=== PATIENT | male | born 1965 | race Caucasian/White ===

== ENCOUNTER 2019-08-05 05:54 | Inpatient (IN) | payer OTHER, SELFPAY ==
[2019-07-20 12:50] VITALS: BMI 35.5
[2019-08-05] VITALS (13 sets, daily range): BP systolic 98–158; BP diastolic 64–92; PULSE 72–99; RESP 14–18; TEMP 36.3–37.1; O2SAT 93–98; BMI 35.5
--- NOTE | 2019-08-05 06:00 | DI.RAD.S_ITS ---
PROCEDURE: XR KNEE LT 1TO2V INDICATIONS: left TKA TECHNIQUE: 2 view(s) of the knee acquired. COMPARISON: [facility], , KNEE 1-2 VIEWS RIGHT, 12/27/2015, 16:31. FINDINGS: Bones: Patient is status post knee joint arthroplasty. Hardware components are in expected positions. Visualized bony structures are intact. Soft tissues: Overlying postoperative changes are noted. IMPRESSION: Expected appearance of left knee arthroplasty. Dictated by: Fabian Martines M.D. on 08/05/2019 at 9:59 Approved by: Fabian Martines M.D. on 08/05/2019 at 9:59
[2019-08-05] MEDS: LACTATED RINGERS 1,000 ML 42 ML IV ×2 (07:11→08:46)
[2019-08-05] MEDS: ACETAMINOPHEN 325 MG TABLET 975 MG PO ×3 (07:15→16:50)
[2019-08-05] MEDS: CELECOXIB 200 MG CAPSULE PO (07:15)
[2019-08-05] MEDS: PREGABALIN 75 MG CAPSULE PO (07:15)
--- NOTE | 2019-08-05 07:29 | PM.PREOP ---
Pre-operative Note Interval Note History & Physical reviewed/Exam performed by Physician: Yes Changes to H&P: No
--- NOTE | 2019-08-05 07:30 | P.OP_ITS ---
Operative Date/Time/Diagnoses Date of procedure: 08/05/19 Time of procedure: 09:46 Pre-op diagnosis: Left knee osteoarthritis Post-op diagnosis: same Procedure & Clinicians Procedure: Left total knee arthroplasty Same procedure as scheduled: Yes Indications: The patient presents today for total knee arthroplasty after failure of conservative treatment. The nature of the procedure including the risks and benefits, alternatives, postoperative course and expected outcome were discussed and all questions answered. Consent was obtained. Operative site confirmed and marked. Surgeon: Dakota Saucedo [employer] Consultant: Jer Szymanski Anesthesia Type: General, Spinal and Local Operative Notes Findings: The patient had severe osteoarthritis with varus alignment. The knee had very thick fatty synovial tissue inside. It did not appear to be particularly inflamed. Minimal fluid and no evidence of infection. A moderate amount of the synovium was resected in addition to doing the knee replacement. Closure Type: primary Specimen(s): none sent Prosthetic devices, grafts, tissues, transplants, or devices: Markell Persona TKA 9 CR femoral component, F stemmed tibial component, 11MC polyethylene tray and 32 mm all poly patella. Applied: implant(s) Estimated Blood Loss (mL): 10 Blood products transfused: none Tourniquet time (min): 55 Procedure in detail: The patient was taken to the operative suite and placed under general and spinal anesthesia. The patient was given prophylactic antibiotics prior to surgery. The patient was also given tranexamic acid, 1 g, just prior to surgery for postoperative hemostasis. The lateral knee was prepped and the joint injected with 20 mL of 1% Lidocaine with epinephrine. The knee was then prepped and draped in usual sterile fashion. The leg was exsanguinated with an Esmarch dressing and the tourniquet raised to 250 torr. A 15 cm anterior incision was made. Next a medial trivector arthrotomy was made. The extensor mechanism was marked to ensure accurate repair. Initial exposing dissection was carried out medially and laterally. The knee was then flexed and the intramedullary femoral guide luis placed. The distal femoral cut was made in 5? of valgus at the +0 position. The femoral size was measured and the appropriate cutting block was then placed and the anterior, posterior and chamfer cuts made. The intramedullary tibial alignment luis was then placed. The guide was set to remove approximately 10 mm from the less affected lateral side. The proximal tibial cut was then made with an oscillating saw. All meniscus and bony debris was then removed. Posterior femoral osteophytes removed with a curved osteotome. Flexion extension gaps were checked. No specific balancing was required other than routine exposure and removal of osteophytes. The soft tissues were then injected with a combination of 20 mL of half percent Marcaine with epinephrine and 20 mL of Exparel. The trial components were then placed. The knee was then extended and the patellar thickness was measured and a cut made removing approximately 9 mm of bone. The patella was then sized and drilled. Some excess lateral bone was excised and the patellofemoral ligament released. The knee went into full extension and flexion beyond 120?. There was excellent medial-lateral balance throughout motion. Patellar tracking was excellent. The trial components were removed and the knee was cleansed with Pulsavac irrigation and dried. The final components were cemented with high viscosity vacuum mixed bone cement with antibiotics. The joint was filled with a dilute Betadine solution. The knee was held in extension and the patellar clamped until the cement was adequately cured. The knee was then irrigated. The extensor mechanism was closed with 5 interrupted #1 Vicryl sutures and a running Quill suture at approximately 90 degrees of flexion. The joint was then injected with a combination of 1 g of tranexamic acid and 20 mL of quarter percent Marcaine with epinephrine. The subcutaneous tissue was closed with 2 0 Vicryl. The skin was closed with luz and surgical adhesive. An Aquacel dressing and Michael wrap were then applied. The patient tolerated the procedure well and was returned to recovery room in good condition. Complications: none Post-operative Condition: stable Disposition: PACU Plan for aftercare: [facility] protocol for total knee arthroplasty. May discharge to home later today.
[2019-08-05] MEDS: CEFAZOLIN 2 GM/100 ML FROZ.PIGGY IV ×2 (07:54→16:43)
[2019-08-05] MEDS: LIDOCAINE 1% W/EPI 20 ML INJ (08:00)
[2019-08-05] MEDS: TRANEXAMIC ACID 1,000 MG VIAL 1000 MG INJ (08:12)
--- NOTE | 2019-08-05 08:30 | SUR.OPER ---
Supine on padded OR bed. Pillow under head, arms secured on padded armboards <90 degree abduction. Safety belt across torso. Non-operative leg secured with tape over blanket over lower leg. Operative leg secured in DeMayo/Ancelmo positioner. Foam padded brace at thigh of operative leg.
[2019-08-05] MEDS: BUPIVACAINE 0.5% W/ EPI (PF) 20 ML, BUPIVACAINE LIPOSOME 266 MG, SODIUM CHLORIDE 0.9% 2... INJ (08:37)
[2019-08-05] MEDS: BUPIVACAINE 0.25% W/ EPI (PF) 20 ML, TRANEXAMIC ACID 1,000 MG, SODIUM CHLORIDE 0.9% 10 ML INJ (08:40)
[2019-08-05] MEDS: METOCLOPRAMIDE 10 MG/2 ML INJ IV (10:00)
[2019-08-05] MEDS: ONDANSETRON 4 MG/2 ML INJ IV (10:00)
[2019-08-05] MEDS: OXYCODONE IR 5 MG TABLET 10 MG PO (11:54)
[2019-08-05] MEDS: LACTATED RINGERS 1,000 ML 125 ML IV (11:54)
[2019-08-05] MEDS: IBUPROFEN 400 MG TABLET PO (14:06)
[2019-08-05] MEDS: NICOTINE 21 MG PATCH TOP (14:08)
[2019-08-05] MEDS: BUSPIRONE 5 MG TABLET PO (14:29)
[2019-08-05] MEDS: ASPIRIN EC 81 MG TABLET PO (14:29)
--- NOTE | 2019-08-05 15:05 | PT.IIE ---
This is to certify that I have reviewed this documentation and is involved with this pt's care. Current Diagnoses Unilateral primary osteoarthritis, right knee (08/05/19) Surgery Performed Operation Date: 08/05/19 07:45 Actual Procedures p Total Knee Arthroplasty(Left) - Dakota Saucedo MD Surgical History (Last Updated 07/28/19 @ 13:28 by Alexus Ram RN) H/O partial resection of colon (Acute ~2014) History of arthroplasty of right knee (Acute 12/27/15) Hx of right knee surgery (Acute) Medical History (Last Updated 07/20/19 @ 13:02 by Alexus Ram RN) Chronic dislocation of shoulder (Acute) Osteoarthritis (Acute) Physical Therapy Inpatient Evaluation/Re-Eval M1 PT/OT-IP Prior Functional Status Start: 08/05/19 11:13 Freq: NEEDED Status: Discharge Protocol: Document 08/05/19 15:05 JG (Rec: 08/05/19 17:41 [id number]) Medical Review Prior Functional Status Medical History Reviewed Yes Diet/Fluid Consistency Regular Communication No noted cognitive or communication deficits. Able to make needs known. Mobility and Gait Pt reports I with mobility and gait but limited tolerance d/ t pain in L knee. Activities of Daily Living and IADL's Pt reports I with mobilit and gait. Prior Functional Level (Other details) Pt was able to drive prior to surgery. Social History Household Members spouse,children Living Arrangements House Number of Floors (Floors) One Floor Number of Stairs To Enter/Railing? 2 JEREMY (R railing) Home Environment High Toilet,Tub/Shower Home Equipment Front Wheel Walker,Straight Cane,Hand Held Shower,Grab Bars In Shower Employment Status [employer] Employ[employer] Additional Social History Comment Pt lives at home in [place] with his and adult son. Pt notes his and son will be available to assist him at home. Pt has good home equipment and notes he will be getting a shower seat on Thursday. He also notes that he can use the counter next to his toilet to help with mobility. 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 M2 PT-IP Current Condition Start: 08/05/19 11:13 Freq: NEEDED Status: Discharge Protocol: Document 08/05/19 15:05 JG (Rec: 08/05/19 17:41 [id number]) Physical Therapy Current Condition Current Condition Evaluation Date 08/05/19 Treatment Diagnosis L TKA, limited activity tolerance, difficulty walking Onset Date 08/04/19 Weight Bearing Status Weight Bearing Status Weight Bear as Tolerated M3 PT-IP Subjective Start: 08/05/19 11:13 Freq: NEEDED Status: Discharge Protocol: Document 08/05/19 15:05 KAR (Rec: 08/05/19 17:41 [id number]) Subjective Physical Therapy Visit Type Type Initial Evaluation Visit Start Time 15:05 Visit Stop Time 16:12 Total Visit Minutes 67 Notes IE led by SPT Pattie, supervised by PT Domonique Number of TACK DRILLER Visits 0 Physical Therapy Visit Comments Patient Comments I am in a bit more pain than I remember after my first TKA. I would like to go home tonight. Patient Goals Return home Therapy Pain Assessment Pain When Pain Assessed At Rest Pain Present Pain Present Pain Reported Location Left Knee Intensity 4 Scale Used Numeric (1 - 10) Description Aching,Acute,Sharp,With Movement Pain Behaviors Wincing Pain Management Techniques Distraction,Timing of Activity with Medications M4 PT-IP Mobility and Gait Start: 08/05/19 11:13 Freq: NEEDED Status: Discharge Protocol: Document 08/05/19 15:05 KAR (Rec: 08/05/19 17:41 [id number]) PT-Bed Mobility Assessment Supine to Sit Supine to Sit Standby Assistance Scooting Scooting to Edge of Bed Standby Assistance PT-Transfer Assessment Sit to and From Stand Sit to and from Stand Contact Guard Assistance,Use of Upper Extremities Equipment Transfer Assistive Device Gait Belt,Front Wheeled Walker Orthotic/Prosthetic Devices or Brace: No Transfers Transfer Destination Chair,Wheelchair Transfer Technique ambulate with FWW Transfer Ability Level of Assist Contact Guard Assistance,Use of Upper Extremities Comments Mobility Comments Pt in bed upon assessment. Resting vitals BP 153/85, HR 77 bpm, O2 97%. Pt was able to long-sit then swing his legs off the bed to the L with SBA. Pt did require extra time to move his L LE. BP at EOB 173/ 83. Pt required CGA sit to/ from stand for stability. Pt initially ambulated in room, then ambulated to stairs for stair training. Used w/c to return to room and then walked back to chair. and son entered room at end of treatment session. Educated pt 's on how to assist pt with mobility and stairs. He was left in chair with two ice packs on knee and call light and needs within reach. Gait Assessment Gait Gait Assistance Required: Standby Assistance,Contact Guard Assist Distance (Feet) 135 Able to Maintain Weight Bearing Status Yes During Gait Assistive Devices Assistive Device Gait Belt,Front Wheeled Walker Orthotic/Prosthetic Devices or Brace: No Gait Deviations General Gait Pattern Antalgic,Decreased Stride Length,Decreased Feet Clearance,Flexed Trunk,Step-to Gait,Wide Based Gait Factors Limiting Gait Function Factors Limiting Gait Function Decreased Activity Tolerance, Decreased Sensation,Decreased Strength,Limited Range of Motion,Pain,Poor Balance Comments Gait Comments Initially ambulated ~10 ft in room CGA and pt demonstrated poor L LE stability. Educated pt on geoff quad to improve L LE stability and gait improved with cuing to SBA. Pt ambulated ~125 feet with decreased stride length. Stride length improved with cuing to take longer steps. Pt demonstrated cont ability to contract quad on L LE for stability prior to WBing throughout ambulation. Pt required SBA for ambulating in straight line but CGA for turns. Stair Climbing Assessment Evaluation Level of Assist On Stairs Contact Guard Assistance Devices Stair Climbing Assistive Devices Right Railing Technique/Endurance Stair Climbing Direction Ascend and Descend Stair Climbing Technique Step to Step Number of Steps Climbed 3 Query Text: Stair Climbing Set # Repetitions (reps) 3 Comments Stair Climbing Comments Educated pt on using phrase up with the good, down with the bad for stair climbing and cued to contract L LE before WBing to stabilize. Pt completed first round of stairs with B railing support and CGA. Next two rounds of stairs were completed with R railing only and CGA. Pt utilized walker to descend last step for stability. PT-Balance Assessment Sitting Balance and Reactions Static Sitting Balance Ability Good Dynamic Sitting Balance Ability Good Standing Balance and Reactions Static Standing Balance Ability Good Dynamic Standing Balance Ability Fair Device Used FWW M5 PT-IP Objective Assessments Start: 08/05/19 11:13 Freq: NEEDED Status: Discharge Protocol: Document 08/05/19 15:05 Selena (Rec: 08/05/19 17:41 [id number]) Orientation Orientation/Cognition Level of Alertness Alert Orientation Name,Day of Week,Place, Situation Language Function Ability No Deficits Noted Safety Awareness Understands Safety Issues Memory Description No Deficits Noted Comments No noted cognitive or communication deficits. Gross Range of Motion Upper Extremity ROM Assessment Within Functional Limits Lower Extremity ROM Assessment Left Impaired Impairments 5-50 dg L knee ROM Strength Upper Extremity Strength Assessment Within Functional Limits Lower Extremity Strength Assessment Left Impaired Hip 4-/5 Knee 4-/5 Ankle 4-/5 Comments Strength Comments Only able to complete SLR 1 off bed d/t pain Sensation Assessment Sensation Gross Sensation Left LE Impaired Light Touch Impaired Comments Sensation Comments Pt reports mild decrease in L LE light touch sensation around medial lower leg compared to R Muscle Tone Muscle Tone WNL Yes M6 PT-IP Treatment Start: 08/05/19 11:13 Freq: NEEDED Status: Discharge Protocol: Document 08/05/19 15:05 JG (Rec: 08/05/19 17:41 J [id number]) Physical Therapy Treatment Exercises Exercises Heel Slides Knee ROM Measurement 5-50 Education Education Provided Weight Bearing Status,Post-Op Packet,Safety Other Treatments Other Treatment Performed Educated pt on geoff quad when walking or stair climbing to improve stability. Pt demonstrated improved gait pattern and stability with cuing. Educated pt on ascending stairs with up with the good, down with the bad and pt demonstrated good awareness of safety during stair climbing. M7 PT-IP Assessment and Plan Start: 08/05/19 11:13 Freq: NEEDED Status: Discharge Protocol: Document 08/05/19 15:05 JG (Rec: 08/05/19 17:41 J [id number]) PT Summary Assessment and Plan Potential Rehabilitation Potential Excellent Status of Condition at Evaluation Stable Summary Impairments Pain,ROM,Strength,Balance, Sensation,Bed Mobility, Transfers,Gait,Activity Tolerance Assessment Summary Pt is 54 yo male presenting 1 day s/p L TKA. Pt required no more than SBA for bed mobility and CGA for all transfers, ambulation, and stair climbing . Pt demonstrates good safety awareness and his stability improved with cuing to contract L quad to stabilize prior to WBing. Pt has OP PT set up starting on 08/16/19. PT recommends d/c to home once medically cleared. Goals Bed Mobility Goal Independent Transfer Goal Independent,Front Wheeled Walker Gait Goal Independent,Front Wheel Walker Gait Distance 250 Other Goals Ascend/descend 2 steps with R railing and SBA Days to Meet Goals 5 Frequency of Treatment Frequency Of Treatment Twice a Day Treatment Plan Physical Therapy Treatment Plan Bed Mobility Training,Transfer Training,Gait Training, Therapeutic Exercise,Balance Retraining,Post Op Education, Discharge Planning,Hot or Cold Pack,Neuromuscular Re-ed Other Recommendations and Next Treatment Caregiver training Focus Recommendations To Nursing Amount of Assist Needed 1 Person Assist Discharge Recommendations PT Discharge Recommendations Home with Assistance, Outpatient PT
[2019-08-05] MEDS: OXYCODONE/ACETAMINOPHEN 5/325 TABLET 1 TAB PO (15:12)
--- NOTE | 2019-08-05 15:43 | PC.NURSE ---
Day Shift- Report rec'd from RENEA Menendez in PACU at 1021. Pt arrived to unit at 1045 via bed into room 211. Oriented to post op vitals, call light, Placing pillow below knee to avoid bend, use of ice pack. Pt has numbness to bilateral leg, able to move legs, ankle pumps and bend at knee, has decreased sensation. Pt has normal sensation using alcohol pad to just below groin level. Left knee aquacel dressing CDI with carla wrap, ice pack on. Pt reports 2/10 discomfort to knee. Medicated in anticipation of pt working with PT this afternoon. Possible discharge. Pt requested nicotine patch, states has at home 21mg, then 14mg, then 7mg, both him and his have goals to quit smoking. Pt states smoking 1 pack per day, 20 cigarettes/day. Phone order by CESILIA Gonzales rec'd for nicotine patch, consulted with Pharmacy for dosing, order placed. Call light within reach.
--- NOTE | 2019-08-05 18:03 | PC.NURSE ---
Pt states he understands his follow up care and discharge instructions. He is discharging to home with his spouse and son. He rates his pain 3/10, and was able to dress with minor assistance. He has a cane and FWW from previous surgery. VSS.
== END 2019-08-05 18:27 | disposition home or self-care (01) | DRG 470 ==
PROVIDERS: Admitting Provider Orthopaedic Surgery; Family Provider Family Medicine; PCP Family Medicine; Visit Provider Orthopaedic Surgery
PROC: 0SRD0JZ Replacement of Left Knee Joint with Synthetic Substitute, Open Approach (ICD-10-PCS; CPT 27447; principal; 2019-08-05 07:45)
DX: M17.12 Unilateral primary osteoarthritis, left knee (principal); Z96.651 Presence of right artificial knee joint; F17.210 Nicotine dependence, cigarettes, uncomplicated
CPT/HCPCS: 73560; 94762; 97116; 97161; 97530; C1776; C9290; J0690; J1100; J2250; J2274; J2405; J2704; J2765; J3010

== ENCOUNTER → 2024-11-29 13:13 | Outpatient (CLI) | payer OTHER, SELFPAY ==
[2019-08-05 11:00] VITALS: BMI 35.5
--- NOTE | 2024-11-29 13:17 | DI.RAD.S_ITS ---
PROCEDURE: XR ANKLE RT MIN 3V INDICATIONS: arthritis TECHNIQUE: 3 views of the ankle were acquired. COMPARISON: None. FINDINGS: Bones: Ununited avulsion fracture of the lateral malleolar tip appreciated. Tibiotalar and talocalcaneal joints: Moderate ankle effusion noted. Talocalcaneal joint is normal. Soft tissues: No soft tissue swelling, calcification or mass. IMPRESSION: Moderate ankle effusion. Ununited fracture lateral malleolar tip Dictated by: Kirill Dye M.D. on 11/30/2024 at 7:47 Approved by: Kirill Dye M.D. on 11/30/2024 at 7:48
--- NOTE | 2024-11-29 13:17 | DI.RAD.S_ITS ---
PROCEDURE: XR ANKLE LT MIN 3V INDICATIONS: arthritis TECHNIQUE: 3 views of the ankle were acquired. COMPARISON: None. FINDINGS: Bones: There are no osseous abnormalities. Tibiotalar and talocalcaneal joints: 2 screws provide arthrodesis across the talocalcaneal joint which is anatomically aligned. Joint line is visualized. There is also arthrodesis across the 1st MTT joint which is anatomically aligned. Moderate ankle effusion noted. This may be posttraumatic or inflammatory Soft tissues: Moderate diffuse soft tissue swelling IMPRESSION: Moderate ankle effusion noted. Talocalcaneal arthrodesis anatomic alignment no evidence of fusion across the joint. First MTT arthrodesis also anatomically aligned Dictated by: Kirill Dye M.D. on 11/30/2024 at 7:45 Approved by: Kirill Dye M.D. on 11/30/2024 at 7:47
== END ==
PROVIDERS: Family Provider Family Medicine; PCP Student in an Organized Health Care Education/Training Program; Referring Provider Chiropractor; Visit Provider Chiropractor
DX: M13.871 Other specified arthritis, right ankle and foot (principal); M13.872 Other specified arthritis, left ankle and foot; M25.471 Effusion, right ankle; M25.472 Effusion, left ankle; S82.61XS Displaced fracture of lateral malleolus of right fibula, sequela; Z98.1 Arthrodesis status
CPT/HCPCS: 73610